=== PATIENT | female | born 1955 | race Hispanic/Latino ===

== ENCOUNTER 2020-10-17 08:29 | Emergency (ER) | payer MEDICARE ==
[2020-10-17] MEDS ORDERED: KETOROLAC 30 MG/ML INJ ONE (09:28)
--- NOTE | 2020-10-17 09:45 | RAD REPORT ---
EXAM DESCRIPTION: CTAbdomen Pelvis W Contrast - 10/17/2020 9:32 am CLINICAL HISTORY: Abdominal pain. BLUNT TRAUMA COMPARISON: No comparisons TECHNIQUE: Biphasic CT imaging of the abdomen and pelvis was performed with 100 ml non-ionic IV cont rast. All CT scans are performed using dose optimization technique as appropriate and may include automated exposure control or mA/KV adjustment according to patient size. FINDINGS: Mild ground-glass opacities are present in both lung bases.Small hiatal hernia is present. Mild diffuse fatty liver is present. No aggressive liver lesion or biliary dilatation. The spleen, pa ncreas, adrenal glands and kidneys are within normal limits. Small benign cyst is present cortex of t he right kidney. No bowel obstruction, free air, free fluid or abscess. The appendix is normal. No evidence of signi ficant lymphadenopathy. No suspicious bony findings. IMPRESSION: No acute intra-abdominal or pelvic finding. Mild diffuse fatty liver.
--- NOTE | 2020-10-17 09:49 | RAD REPORT ---
EXAM DESCRIPTION: CT - Spine Lumbar Wo Con - 10/17/2020 9:31 am CLINICAL HISTORY: Radiculopathy. trauma and pain COMPARISON: No comparisons TECHNIQUE: Axial noncontrast CT imaging of the lumbar spine was performed with coronal and sagittal re-formatted images. All CT scans are performed using dose optimization technique as appropriate and may include automated exposure control or mA/KV adjustment according to patient size. FINDINGS: Mild anterior wedge compression fracture is present affecting the L1 vertebral body. Loss of vertebral body height is estimated at 10-15%. The surrounding soft tissues are mildly thickened. No canal compromise is present. No additional fracture or subluxation seen. No paraspinal masses. Mild posterior disc bulge to the left at L2-3. IMPRESSION: Mild acute anterior wedge compression fracture affects the L1 vertebral body. No signifi cant canal compromise.
[2020-10-17] MEDS ORDERED: FLEET ENEMA ADULT PR ONE (11:24)
--- NOTE | 2020-10-17 12:17 | EDPHYS ---
Physician Documentation [facility] Name: Mimi Atkinson Age: 64 yrs Sex: Female : 1955 Arrival Date: 10/17/2020 Time: 08:33 Bed 18 Private MD: ED Physician Cory Bearden HPI: 10/17 09:39 This 64 yrs old Female presents to ER via Ambulatory with complaints of Back ma2 Pain, Constipation. 09:39 The patient presents with pain that is acute. Onset: The symptoms/episode ma2 began/occurred gradually, 1 day(s) ago. Associated signs and symptoms: Pertinent positives: constipation, Pertinent negatives: fever, hematuria. Severity of symptoms: At their worst the symptoms were moderate, in the emergency department the symptoms are unchanged. The patient has not experienced similar symptoms in the past. patient tripped and fell sitting and here with lower back pain . Historical: - Allergies: 08:45 No Known Allergies; aa5 - PMHx: 08:45 None; aa5 - PSHx: 08:45 eyes; ; aa5 - Immunization history:: Adult Immunizations unknown. - Social history:: Smoking status: Patient denies any tobacco usage or history of. Patient/guardian denies using alcohol, street drugs, The patient lives with family. - Family history:: not pertinent. ROS: 09:39 Constitutional: Negative for fever, chills, and weight loss. ma2 09:39 All other systems are negative. Exam: 09:39 Constitutional: This is a well developed, well nourished patient who is awake, alert, ma2 and in no acute distress. Head/Face: Normocephalic, atraumatic. Eyes: Pupils equal round and reactive to light, extra-ocular motions intact. Lids and lashes normal. Conjunctiva and sclera are non-icteric and not injected. Cornea within normal limits. Periorbital areas with no swelling, redness, or edema. ENT: Nares patent. No nasal discharge, no septal abnormalities noted. Tympanic membranes are normal and external auditory canals are clear. Oropharynx with no redness, swelling, or masses, exudates, or evidence of obstruction, uvula midline. Mucous membranes moist. Neck: Trachea midline, no thyromegaly or masses palpated, and no cervical lymphadenopathy. Supple, full range of motion without nuchal rigidity, or vertebral point tenderness. No Meningismus. Chest/axilla: Normal chest wall appearance and motion. Nontender with no deformity. No lesions are appreciated. Cardiovascular: Regular rate and rhythm with a normal S1 and S2. No gallops, murmurs, or rubs. Normal PMI, no JVD. No pulse deficits. Respiratory: Lungs have equal breath sounds bilaterally, clear to auscultation and percussion. No rales, rhonchi or wheezes noted. No increased work of breathing, no retractions or nasal flaring. Abdomen/GI: Soft, non-tender, with normal bowel sounds. No distension or tympany. No guarding or rebound. No evidence of tenderness throughout. Back: lower back tt, no signs of trauma. No spinal tenderness. No costovertebral tenderness. Full range of motion. Skin: Warm, dry with normal turgor. Normal color with no rashes, no lesions, and no evidence of cellulitis. MS/ Extremity: Pulses equal, no cyanosis. Neurovascular intact. Full, normal range of motion. Neuro: Awake and alert, GCS 15, oriented to person, place, time, and situation. Cranial nerves II-XII grossly intact. Motor strength 5/5 in all extremities. Sensory grossly intact. Cerebellar exam normal. Normal gait. Psych: Awake, alert, with orientation to person, place and time. Behavior, mood, and affect are within normal limits. Vital Signs: 08:35 BP 167 / 83; Pulse 80; Resp 16 S; Temp 98.5(O); Pulse Ox 97% on R/A; Weight 77.11 kg aa5 (R); Height 5 ft. 0 in. (152.40 cm) (R); Pain 9/10; 08:35 Body Mass Index 33.20 (77.11 kg, 152.40 cm) aa5 MDM: 08:35 Patient medically screened. ma2 12:14 Differential diagnosis: Ligament Injury Osteoarthritis sprain, vertebral fracture, L1 ma2 compression wedge fracture, no canal stenosis or cord compression, no weakness or urinary retension or bowel retention. she does have chronic constipation. 12:14 Data reviewed: vital signs, nurses notes, EMS record. Counseling: I had a detailed ma2 discussion with the patient and/or guardian regarding: the historical points, exam findings, and any diagnostic results supporting the discharge/admit diagnosis, the presence of at least one elevated blood pressure reading (>120/80) during this emergency department visit, the need for outpatient follow up. Response to treatment: the patient's symptoms have markedly improved after treatment. 04 08:56 Order name: CT Abd/Pelvis - IV Contrast Only; Complete Time: 10:07 ma2 04 08:56 Order name: CT Lumbar Spine Wo Con; Complete Time: 10: ma2 Administered Medications: 09:20 Drug: TORadol 60 mg Route: IM; Site: right gluteus; jd3 11:31 Drug: Fleet Enema 133 ml Route: AK; jd3 Disposition: 10/17/20 12:17 Discharged to Home. Impression: Low back pain, Wedge compression fracture of first lumbar vertebra - with no cord compression. - Condition is Stable. - Discharge Instructions: Back Pain, Adult. - Prescriptions for Fleet Enema Extra - insert 1 ampule by RECTAL route 1-2 times daily; 2 Cartridge. Colace 100 mg Oral Tablet - take 1 tablet by ORAL route every 12 hours; 14 tablet. Diclofenac Sodium 75 mg Oral Tablet Sustained Release - take 1 tablet by ORAL route 2 times per day; 30 tablet. Cyclobenzaprine 10 mg Oral Tablet - take 1 tablet by ORAL route every 8 hours As needed; 30 tablet. - Medication Reconciliation Form, Thank You Letter, Antibiotic Education, Prescription Opioid Use form. - Follow up: Private Physician; When: 24 Hours; Reason: If symptoms return. Signatures: Dispatcher [employer] EDMS Stefany Magana RN RN aa5 Husam Lloyd RN RN jd3 Cory Bearden MD MD ma2 Vi Mcnamara RN RN zb Corrections: (The following items were deleted from the chart) 12:42 12:17 10/17/2020 12:17 Discharged to Home. Impression: Low back pain; Wedge compression zb fracture of first lumbar vertebra - with no cord compression. Condition is Stable. Discharge Instructions: Back Pain, Adult. Prescriptions for Fleet Enema Extra - insert 1 ampule by RECTAL route 1-2 times daily; 2 Cartridge, Colace 100 mg Oral Tablet - take 1 tablet by ORAL route every 12 hours; 14 tablet, Diclofenac Sodium 75 mg Oral Tablet Sustained Release - take 1 tablet by ORAL route 2 times per day; 30 tablet, Cyclobenzaprine 10 mg Oral Tablet - take 1 tablet by ORAL route every 8 hours As needed; 30 tablet. and Forms are Medication Reconciliation Form, Thank You Letter, Antibiotic Education, Prescription Opioid Use. Follow up: Private Physician; When: 24 Hours; Reason: If symptoms return. ma2
--- NOTE | 2020-10-17 12:17 | ER ---
Nurse's Notes [facility] Name: Mimi Atkinson Age: 64 yrs Sex: Female : 1955 Arrival Date: 10/17/2020 Time: 08:33 Bed 18 Private MD: Diagnosis: Low back pain;Wedge compression fracture of first lumbar vertebra-with no cord compression Presentation: 10/17 08:35 Chief complaint: Patient states: "I fell right on my butt on Sunday and now my back is aa5 hurting, I also haven't been able to have a bowel movement since then". Pt c/o lower back pain. 08:35 Coronavirus screen: At this time, the client does not indicate any symptoms associated aa5 with coronavirus-19. Ebola Screen: Patient negative for fever greater than or equal to 101.5 degrees Fahrenheit, and additional compatible Ebola Virus Disease symptoms. Initial Sepsis Screen: Does the patient meet any 2 criteria? No. Patient's initial sepsis screen is negative. Does the patient have a suspected source of infection? No. Patient's initial sepsis screen is negative. Risk Assessment: Do you want to hurt yourself or someone else? Patient reports no desire to harm self or others. Onset of symptoms was October 2020. 08:35 Acuity: PRESLEY 3 aa5 08:35 Method Of Arrival: Ambulatory aa5 Historical: - Allergies: 08:45 No Known Allergies; aa5 - PMHx: 08:45 None; aa5 - PSHx: 08:45 eyes; ; aa5 - Immunization history:: Adult Immunizations unknown. - Social history:: Smoking status: Patient denies any tobacco usage or history of. Patient/guardian denies using alcohol, street drugs, The patient lives with family. - Family history:: not pertinent. Screenin:32 Abuse screen: Denies threats or abuse. Nutritional screening: No deficits noted. jd3 Tuberculosis screening: No symptoms or risk factors identified. Fall Risk Ambulatory Aid- None/Bed Rest/Nurse Assist (0 pts). Gait- Normal/Bed Rest/Wheelchair (0 pts) Mental Status- Oriented to own ability (0 pts). Total Zeng Fall Scale indicates No Risk (0-24 pts). Assessment: 09:20 General: Appears in no apparent distress. uncomfortable, Behavior is calm, cooperative, jd3 appropriate for age. Pain: Complains of pain in back. Neuro: Level of Consciousness is awake, alert, obeys commands, Oriented to person, place, time, situation. Cardiovascular: Denies chest pain, Capillary refill < 3 seconds Patient's skin is warm and dry. Respiratory: Airway is patent Respiratory effort is even, unlabored, Respiratory pattern is regular, symmetrical, Denies cough, shortness of breath. GI: Abdomen is round non-distended, Reports constipation. : No signs and/or symptoms were reported regarding the genitourinary system. EENT: No signs and/or symptoms were reported regarding the EENT system. Derm: Skin is intact, Skin is dry, Skin is normal, Skin temperature is warm. Musculoskeletal: Circulation, motion, and sensation intact. Range of motion: intact in all extremities. 10:15 Reassessment: Patient appears in no apparent distress at this time. No changes from jd3 previously documented assessment. Patient and/or family updated on plan of care and expected duration. Pain level reassessed. Patient is alert, oriented x 3, equal unlabored respirations, skin warm/dry/pink. 11:31 Reassessment: Patient appears in no apparent distress at this time. No changes from jd3 previously documented assessment. Patient and/or family updated on plan of care and expected duration. Pain level reassessed. Patient is alert, oriented x 3, equal unlabored respirations, skin warm/dry/pink. reporting continued constipation. 11:57 Reassessment: Patient appears in no apparent distress at this time. Patient and/or jd3 family updated on plan of care and expected duration. Pain level reassessed. Patient is alert, oriented x 3, equal unlabored respirations, skin warm/dry/pink. pt reported feeling better. pt reported being able to use the restroom. 12:40 Reassessment: d/c instructions given. pt aox4. up at jeevan. gait steady and even no c/o zb at this time. Vital Signs: 08:35 BP 167 / 83; Pulse 80; Resp 16 S; Temp 98.5(O); Pulse Ox 97% on R/A; Weight 77.11 kg aa5 (R); Height 5 ft. 0 in. (152.40 cm) (R); Pain 9/10; 08:35 Body Mass Index 33.20 (77.11 kg, 152.40 cm) aa5 ED Course: 08:33 Patient arrived in ED. ds1 08:35 Cory Bearden MD is Attending Physician. ma2 08:35 Arm band placed on Patient placed in an exam room, on a stretcher. aa5 08:44 Triage completed. aa5 09:09 Husam Lloyd, RN is Primary Nurse. jd3 09:21 Inserted saline lock: 20 gauge in right antecubital area, using aseptic technique. jd3 09:30 CT Lumbar Spine Wo Con In Process Unspecified. EDMS 09:32 CT Abd/Pelvis - IV Contrast Only In Process Unspecified. EDMS 09:32 Patient has correct armband on for positive identification. Bed in low position. Call jd3 light in reach. Side rails up X 1. Adult w/ patient. Pulse ox on. NIBP on. 12:41 No provider procedures requiring assistance completed. IV discontinued, intact, zb bleeding controlled, No redness/swelling at site. Pressure dressing applied. Administered Medications: 09:20 Drug: TORadol 60 mg Route: IM; Site: right gluteus; jd3 11:31 Drug: Fleet Enema 133 ml Route: [place]; jd3 Outcome: 12:17 Discharge ordered by . ma2 12:41 Discharged to home ambulatory. zb 12:41 Condition: stable 12:41 Discharge instructions given to patient, Instructed on discharge instructions, follow up and referral plans. medication usage, Demonstrated understanding of instructions, follow-up care, medications, Prescriptions given X 4. 12:42 Patient left the ED. zb Signatures: Dispatcher [employer] [facility] Marga Stanley ds1 Stefany Magana, RN RN aa5 Husam Lloyd, [place] RN jCory Turner MD MD ma2 Brown, Zipporah, RN RN zb
[2020-10-17 12:46] VITALS: BP 167/83; TEMP 98.5; O2SAT 97
== END 2020-10-17 12:42 | disposition home or self-care (01) ==
LOC: ER 08:29
DX: S32.010A Wedge compression fracture of first lumbar vertebra, initial encounter for closed fracture (principal); W01.0XXA Fall on same level from slipping, tripping and stumbling without subsequent striking against object, initial encounter; Y93.9 Activity, unspecified; Y92.9 Unspecified place or not applicable
CPT/HCPCS: 82565; 72131; 74177; Q9967; 96372; 99284